=== PATIENT | female | born 1990 | race Caucasian/White ===

== ENCOUNTER 2018-12-19 14:55 | Outpatient (REF) | payer BC, SELFPAY ==
[2018-12-22 10:51] LABS: HIV-1/2 Ag & Ab Screen Negative (NEGAT)
[2018-12-22 13:14] LABS: Chlamydia Result Negative; GC Result Negative
== END 2018-12-19 15:15 ==
LOC: NCHCN 14:55
PROVIDERS: PCP Nurse Practitioner Family; Visit Provider Nurse Practitioner Family
DX: Z11.3 Encounter for screening for infections with a predominantly sexual mode of transmission (principal); Z11.4 Encounter for screening for human immunodeficiency virus [HIV]
CPT/HCPCS: 87389; 87491; 87591

== ENCOUNTER 2020-02-08 16:58 | Outpatient (REF) | payer OTHER, MEDICAID, SELFPAY ==
[2020-02-11 01:18] LABS: SARS-CoV-2 RNA Undetected (Undetected)
== END 2020-02-08 17:18 ==
LOC: NCHCN 16:58
PROVIDERS: PCP Nurse Practitioner Family; Visit Provider Internal Medicine
DX: Z11.59 Encounter for screening for other viral diseases (principal)
CPT/HCPCS: U0003

== ENCOUNTER 2022-06-27 11:27 | Outpatient (REF) | payer MEDICAID, SELFPAY ==
--- NOTE | 2022-06-27 15:40 | PAPFT_PTH ---
PATIENT: Cassandra Felipe LOC: [facility]#:[id number] AGE/SX: 32/F ROOM: RE06/27/[address]: Candace Montalvo : 1990 BED: DIS: 06/27/2022 SPEC #: [id number] RECD: 06/28/22 12:18 STATUS: ZACHARY REQ #: [id number] DANNI: 06/27/22 15:[address]: Candace Montalvo DEPT: [facility] Cytology RECD BY: Ani Gonzalez ENTERED: 06/28/22 12:19 SP TYPE: PAPFT OTHR DR: Amee Frye Tissues: 1 - CX/ENDOCX FOR PAP SMEARS Procedures: PAP THIN PREP/[facility] Screening HPV DNA PROBE Comments: [id number]
== END 2022-06-27 11:28 | disposition home or self-care (01) ==
LOC: NCHCN 11:27
PROVIDERS: PCP Nurse Practitioner Family; Visit Provider Physician Assistant
DX: Z12.4 Encounter for screening for malignant neoplasm of cervix (principal); R87.610 Atypical squamous cells of undetermined significance on cytologic smear of cervix (ASC-US); Z11.51 Encounter for screening for human papillomavirus (HPV)
CPT/HCPCS: 88142; 87624